=== PATIENT | female | born 1960 ===

== ENCOUNTER 2018-05-06 10:36 | Day surgery (SDC) | payer MEDICAID ==
[2018-04-06 11:39] VITALS: BMI 27.8
[2018-05-06] MEDS ORDERED: Midazolam 2 MG/2 ML VIAL ONE (12:37)
[2018-05-06] MEDS ORDERED: Propofol 10 mg/ml Inj (20 ML) ONE (12:37)
[2018-05-06 13:36] VITALS: O2SAT 100
[2018-05-06 14:10] VITALS: BP 127/70; PULSE 68; RESP 18; TEMP 97
--- NOTE | 2018-05-07 07:22 | OP ---
PROCEDURE DATE: 05/06/2018 PREOPERATIVE DIAGNOSES: A 57-year-old with 2, para 2, postmenopausal bleeding, history of breast cancer. POSTOPERATIVE DIAGNOSES: A 57-year-old with 2, para 2, postmenopausal bleeding, history of breast cancer, endometrial polyp. SURGEON: David Holland MD TYPE OF ANESTHESIA: General anesthesia. ANESTHESIOLOGIST: Dr. Ernesto Tracy. PROCEDURE PERFORMED: MyoSure, dilatation and curettage, hysteroscopy. COMPLICATIONS: None. DESCRIPTION OF PROCEDURE: After informed consent was obtained, the patient was brought to the operating room, placed on the table where general anesthesia was given. When anesthesia was found to be sufficient, the patient was prepped and draped in the normal sterile fashion. Examination of uterus showed it to be . Anterior lip of the cervix was grasped with a tenaculum. Gentle dilatation of the cervix was performed. It was found that there was a polyp on the posterior wall of the uterus. Picture was taken, and the decision was made to use the MyoSure. MyoSure was used to take out the polyp. After that, sharp curettage of all the miller of the uterus was done and was sent to the Pathology, and then after that, ECC was done and it was sent to the pathology too. . The patient tolerated the procedure well. Lap, sponge, and instrument counts were correct x2. . David Holland MD
== END 2018-05-06 14:30 | disposition home or self-care (01) ==
LOC: C.SDS 10:36
PROVIDERS: ATTEND Obstetrics & Gynecology
DX: N95.0 Postmenopausal bleeding (principal); N84.0 Polyp of corpus uteri; Z85.3 Personal history of malignant neoplasm of breast
CPT/HCPCS: 58558; 88305; J2250; J2704; J3010